=== PATIENT | female | born 1945 | race Caucasian/White ===

== ENCOUNTER → 2016-06-13 | Outpatient (CLI) | payer OTHER ==
[~2016-06-13] MED LIST: FSM70 PO; MULT-506 PO; [UNRECOGNIZED DRUG - REMARK]
--- NOTE | 2016-06-13 18:16 | DIAGNOSTIC IMAGING REPORT ---
RIGHT FOOT MIN 3 VIEWS ROUTINE CLINICAL HISTORY: RIGHT FOOT PAIN Right pain COMPARISON: None. DISCUSSION: Small heel spur. Minimal degenerative change first metatarsophalangeal joint. No acute bony abnormality. There is no evidence for soft tissue swelling. IMPRESSION: Small heel spur. Minimal degenerative change first metatarsophalangeal joint. No acute process. Electronically signed by: Ryan Pierce M.D. 06/13/2016 6:14 PM
== END | disposition home or self-care (01) ==
LOC: C.RAD 17:49
PROVIDERS: ATTEND Internal Medicine
DX: M79.673 Pain in unspecified foot (principal)

== ENCOUNTER → 2016-09-04 | Outpatient (CLI) | payer OTHER ==
[2016-09-04 12:58] LABS: BASO % 0.6 %; BASO ABS # 0.03 K/uL (0-0.2); COMPLETE YES; EOS % 2.3 %; HEMATOCRIT 41.1 % (37-47); IG% 0.2 %; LYMPH % 32.7 %; LYMPH ABS # 1.67 K/uL (1.2-3.4); MEAN CELL VOLUME 92.4 fL (80-100); MEAN CORPUSCULAR HEMOGLOBIN 31.7 pg (25-34); MEAN CORPUSCULAR HGB CONC 34.3 g/dl (32-36); MEAN PLATELET VOLUME 9.4 fL (7.4-10.4); MONO % 7.6 %; NEUT % 56.6 %; PLATELET COUNT 277 K/uL (130-400); RED BLOOD COUNT 4.45 M/uL (4.2-5.4); WHITE BLOOD COUNT 5.11 K/uL (4.8-10.8)
[2016-09-04 13:16] LABS: BLOOD UREA NITROGEN 22 mg/dl (7-18); BUN/CREATININE RATIO 27.3 (10-20); CARBON DIOXIDE 28 mmol/L (21-32); CHLORIDE 109 mmol/L (98-107); GLUCOSE 85 mg/dl (70-99); POTASSIUM 3.9 mmol/L (3.5-5.1); SODIUM 143 mmol/L (136-145)
[2016-09-04 13:19] LABS: CHOLESTEROL 214 mg/dl (0-200); CHOLESTEROL/HDL RATIO 3.1; HDL CHOLESTEROL 70 mg/dl; LDL CHOLESTEROL CALCULATED 129 mg/dl; TRIGLYCERIDES 77 mg/dl (0-150); VERY LOW DENSITY LIPOPROT CALC 15 mg/dl
== END | disposition home or self-care (01) ==
LOC: C.LABBFT 09:57
PROVIDERS: ATTEND Internal Medicine
DX: M81.0 Age-related osteoporosis without current pathological fracture (principal); Z13.6 Encounter for screening for cardiovascular disorders

== ENCOUNTER → 2016-10-04 | Outpatient (CLI) | payer OTHER ==
--- NOTE | 2016-10-04 11:33 | DIAGNOSTIC IMAGING REPORT ---
RIGHT FOOT MIN 3 VIEWS ROUTINE CLINICAL HISTORY: Right foot pain COMPARISON: Right foot radiograph June 13, 2016. FINDINGS: Alignment of the right foot is anatomic. Tarsometatarsal joints are intact. There is mild plantar calcaneal spurring. No fracture or suspicious lesion is present. 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 IMPRESSION: 1. No acute fracture or dislocation of the right foot. 2. Mild plantar calcaneal spurring. Electronically signed by: Gonsalo Cisneros M.D. 10/04/2016 11:31 AM Dictated Date/Time: 10/04/2016 11:29 AM
== END | disposition home or self-care (01) ==
LOC: C.RAD 10:32
PROVIDERS: ATTEND Physician Assistant Medical
DX: M79.673 Pain in unspecified foot (principal)

== ENCOUNTER → 2016-11-29 | Outpatient (CLI) | payer OTHER ==
--- NOTE | 2016-11-29 18:32 | DIAGNOSTIC IMAGING REPORT ---
WHOLE-BODY NUCLEAR BONE SCAN CLINICAL HISTORY: Atypical chest pain. COMPARISON STUDY: Chest radiograph dated 10/31/2012. Radiograph of the right foot dated 10/04/2016. TECHNIQUE: Three hours following the IV administration of 27.5 mCi of technetium 99m MDP, whole body nuclear bone scan was performed in the anterior and posterior projections. FINDINGS: There is no abnormal osseous tracer deposition identified typical in appearance for bony metastatic disease. No abnormal activity localizes to the bony thorax as clinically queried. Typically degenerative uptake is identified in the spine, shoulders, wrists, knees, and ankles. Intense activity is identified in the right forefoot. Focal activity within the left aspect of the mandible is likely related to periodontal disease. There is expected excreted activity within the renal collecting system and bladder. IMPRESSION: 1. There is no abnormal tracer deposition identified in the bony thorax as clinically queried. 2. Foci of typically degenerative change as above. 3. Intense activity in the right forefoot and midfoot is nonspecific and greater than expected for degenerative change when compared to the 10/04/2016 radiographs. Clinical correlation will be essential. Electronically signed by: Didire España M.D. 11/29/2016 6:31 PM Dictated Date/Time: 11/29/2016 6:27 PM
== END | disposition home or self-care (01) ==
LOC: C.NUCL 14:27
PROVIDERS: ATTEND Internal Medicine
DX: R07.89 Other chest pain (principal); M89.8X7 Other specified disorders of bone, ankle and foot

== ENCOUNTER → 2017-02-13 | Outpatient (CLI) | payer OTHER | END | disposition home or self-care (01) | LOC: C.PATHSPEC 17:24 | PROVIDERS: ATTEND Surgery | DX: D17.9 Benign lipomatous neoplasm, unspecified (principal) ==

== ENCOUNTER → 2017-09-11 | Outpatient (CLI) | payer OTHER | END | disposition home or self-care (01) | LOC: C.LABBFT 12:25 | PROVIDERS: ATTEND Internal Medicine | DX: E78.5 Hyperlipidemia, unspecified (principal); M81.0 Age-related osteoporosis without current pathological fracture ==